=== PATIENT | female | born 1990 | race Two or more races ===

== ENCOUNTER 2024-04-04 12:15 | Outpatient (CLI) | payer OTHER ==
[2024-04-04 15:40] VITALS: BP 139/89; PULSE 78; RESP 16; TEMP 97.8
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
== END 2024-04-04 13:11 | disposition home or self-care (01) ==
LOC: FBPOP 12:15
PROVIDERS: ATTEND Obstetrics & Gynecology
CPT/HCPCS: 59025; 99213